=== PATIENT | male | born 1990 | race African-American/Black ===

== ENCOUNTER 2017-08-23 03:17 | Emergency (ER) | payer SELFPAY ==
[~2017-08-23] VITALS: Ht 188 cm; Wt 108.9 kg
[2017-08-23 04:01] VITALS: BP 123/67
== END 2017-08-23 04:32 | disposition home or self-care (01) ==
LOC: ER 03:22
DX: I83.891 Varicose veins of right lower extremity with other complications (principal); Z60.2 Problems related to living alone
CPT/HCPCS: A4606; Z7610